=== PATIENT | female | born 1990 | race Caucasian/White ===

== ENCOUNTER 2016-11-18 21:51 | Emergency (ER) | payer BC, OTHER ==
[2016-11-18] MEDS ORDERED: Ketorolac INJ* 60 MG/2 ML VIAL IM ONE (22:46)
[2016-11-18] MEDS ORDERED: Ketorolac INJ* 30 MG/ML 1 ML VIAL ONE (22:57)
[2016-11-18] MEDS ORDERED: Ketorolac INJ* 60 MG/2 ML VIAL ONE (23:01)
[2016-11-18] MEDS ORDERED: Cyclobenzaprine TAB* 10 MG PO ONE (23:42)
[2016-11-18] MEDS ORDERED: HYDROcodone/ACETAMIN 5-325 MG* 1 TAB PO ONE (23:43)
[2016-11-19 00:32] VITALS: BP 77/55
--- NOTE | 2016-11-19 09:51 | ED ---
Neck Pain - HPI Summary HPI Summary: Patient presents to the ED with CC of right sided neck pain x 2 days. She states she possibly had slept on the neck wrong and it has been painful ever since. This has happened before. Pain is 8/10, constant, and worse with movement and better with rest. Denies fevers, sweats and chills. Denies posterior cervical tenderness. Denies mid or lower back pain. Denies trauma or other known injury. In the past, she has used ibuprofen and heat with relief , but is currently not improving her symptoms. Denies tick bites or rashes. Denies pain in other areas. She notes to intermittent numbness and tingling in the ipsilateral hand which has happened before with similar symptoms. - History of Current Complaint Chief Complaint: EDNeckComplaint Stated Complaint: NECK PAIN INTO BACK Time Seen by Provider: 11/18/16 22:26 Hx Obtained From: Patient Hx Last Menstrual Period: 11/22/14 Onset/Duration Of Injury/Symptoms: Days Mechanism Of Injury: No Known Trauma Timing: Constant Onset/Duration: Sudden Onset Severity Initially: Moderate Severity Currently: Moderate Pain Intensity: 9 Pain Scale Used: 0-10 Numeric Location: Discrete At: - right sided neck pain Character: Aching, Stiff Aggravating Factors: Position, Movement Alleviating Factors: Nothing Associated Signs & Symptoms: Positive: Paresthesia. Negative: Nuchal Rigity, Weakness, Headache - Risk Factors Meningitis Risk Factors: Negative - Allergies/Home Medications Allergies/Adverse Reactions: Allergies Allergy/AdvReac Type Severity Reaction Status Date / Time No Known Allergies Allergy Verified 07/14/15 12:53 PMH/Surg Hx/FS Hx/Imm Hx Previously Healthy: Yes Endocrine/Hematology History: Denies: Hx Diabetes, Hx Thyroid Disease Cardiovascular History: Denies: Hx Hypertension Respiratory History: Reports: Hx Asthma Denies: Hx Chronic Obstructive Pulmonary Disease (COPD) GI History: Denies: Hx Ulcer Psychiatric History: Reports: Hx Anxiety, Hx Eating Disorder - Anorexia; unable to obtain if current, Hx Depression, Hx Substance Abuse Comment Only: Hx of Violent Episodes Against Others - Unable to obtain - Surgical History Surgery Procedure, Year, and Place: cleft pallet repair, cervical lymph node removal - Immunization History Hx Pertussis Vaccination: No Immunizations Up to Date: Unable to Obtain/Confirm Infectious Disease History: No Infectious Disease History: Denies: Hx Hepatitis, Hx Human Immunodeficiency Virus (HIV), Traveled Outside the [place] in Last 30 Days - Social History Occupation: Employed Full-time Lives: With Family Alcohol Use: Rare Hx Substance Use: Yes Substance Use Type: Reports: Marijuana, Other Hx Tobacco Use: Yes Smoking Status (MU): Heavy Every Day Tobacco Smoker Type: Cigarettes Review of Systems Constitutional: Negative Negative: Fever, Chills, Fatigue Negative: Photophobia, Blurred Vision Cardiovascular: Negative Respiratory: Negative Genitourinary: Negative Positive: no symptoms reported, see HPI Positive: Arthralgia, Myalgia Skin: Negative Positive: Paresthesia All Other Systems Reviewed And Are Negative: Yes Physical Exam Triage Information Reviewed: Yes Vital Signs On Initial Exam: Initial Vitals Temp Pulse Resp BP Pulse Ox 98.2 F 87 16 129/65 100 11/18/16 21:53 11/18/16 21:53 11/18/16 21:53 11/18/16 21:53 11/18/16 21:53 Vital Signs Reviewed: Yes Appearance: Positive: Well-Appearing, Well-Nourished Skin: Positive: Warm, Skin Color Reflects Adequate Perfusion Head/Face: Positive: Normal Head/Face Inspection Eyes: Positive: EOMI, ASHER, Conjunctiva Clear Neck: Positive: Tenderness @ - right sternocleidomastoid muscular pain with radiation to the right scapula Cardiovascular: Positive: RRR, Pulses are Symmetrical in both Upper and Lower Extremities Musculoskeletal: Positive: Pain @ - right neck pain Neurological: Positive: Speech Normal Psychiatric: Positive: Normal - [place] Coma Scale Coma Scale Total: 15 Diagnostics - Vital Signs Vital Signs Temp Pulse Resp BP Pulse Ox 11/19/16 00:31 98.0 F 65 14 77/55 99 11/18/16 21:53 98.2 F 87 16 129/65 100 - Laboratory Lab Statement: Any lab studies that have been ordered have been reviewed, and results considered in the medical decision making process. Neck Course/Dx - Course Course Of Treatment: Patient presents to the ED with 8/10 right sided neck pain with no known injury. Right sternocleidomastoid muscular pain with radiation to the right scapula. On PE, no posterior cervical spine tenderness. Unable to assess full ROM d/t pain in the right neck and shoulder. Flexeril and pain management given. Agreed to provide an xray based on symptoms, but patient has had these symptoms before with cervical strain dx and given muscle relaxers with mild relief. No trauma. Will defer at this time for any imaging, but patient agrees to return for any worsening or new symptoms. Discussed treatment options available to the patient. They understand at this time and voice no concerns over discharge plan. Return precautions are explained in depth and patient agrees to follow up if needed. Given flexeril and pain medication prior to discharge to dispense to home. - Diagnoses Differential Dx/HQI/PQRI: Positive: Sprain, Strain Provider Diagnoses: Cervical radicular pain Discharge - Discharge Plan Condition: Stable Disposition: HOME Prescriptions: Cyclobenzaprine TAB* [Flexeril 10 MG TAB*] 10 mg PO BID PRN #10 tab MDD 2 PRN Reason: Pain HYDROcodone/ACETAMIN 5-325 MG* [[place] 5-325 TAB*] 1 tab PO Q4H PRN #20 tab MDD 6 PRN Reason: Pain Patient Education Materials: Cervical Radiculopathy (ED) Referrals: Ruben Castro MD [Primary Care Provider] - Additional Instructions: You have been dx with cervical radiculopathy Moist heat to the area - constantly! This will help with muscle tension Flexeril twice daily for muscle pain Pain medication only as needed Ibuprofen 600mg three times daily for inflammation If anything becomes worse - return to the ED immediately
== END 2016-11-19 01:00 | disposition home or self-care (01) ==
LOC: ED 21:51
DX: M54.2 Cervicalgia (principal); R20.2 Paresthesia of skin; F17.210 Nicotine dependence, cigarettes, uncomplicated; M25.511 Pain in right shoulder
CPT/HCPCS: 96372; 96374; 96376; 99281; A9270-GY; J1885